=== PATIENT | male | born 1975 | race Caucasian/White ===

== ENCOUNTER 2017-05-01 18:28 | Emergency (ER) | payer SELFPAY ==
[~2017-05-01] VITALS: Ht 180.3 cm; Wt 106.6 kg
[2017-05-01] MEDS ORDERED: BACTRIM DS TAB1 EACH PO (20:09)
== END 2017-05-01 20:23 | disposition home or self-care (01) ==
LOC: ED 18:28
DX: H00.021 Hordeolum internum right upper eyelid (principal); F17.200 Nicotine dependence, unspecified, uncomplicated
CPT/HCPCS: 99283